=== PATIENT | female | born 1995 | race Caucasian/White ===

== ENCOUNTER 2016-08-05 21:07 | Emergency (ER) | payer BC ==
[~2016-08-05] VITALS: Ht 160 cm; Wt 54.0 kg
[2016-08-05 21:09] VITALS: BP 123/74; PULSE 104; RESP 16; TEMP 97.3; O2SAT 98
[2016-08-05] MEDS ORDERED: ACETAMINOPHEN 500 MG CPLT PO ONE (23:00)
[2016-08-05] MEDS ORDERED: DIAZEPAM 5 MG TAB PO ONE (23:00)
[2016-08-05 23:24] LABS: BACTERIA, URINE OCC /hpf; BLOOD, URINE NEG (NEG); COMMENT (UR) CULT NOT INDICATED; CULTURE IF INDICATED CULT NOT INDICATED; GLUCOSE,URINE NEG (NEG); KETONE, URINE NEG (NEG); MUCUS URINE FEW /lpf (OCC); NITRITE,URINE NEG (NEG); PH, URINE 7.5 (5.0-8.5); SQUAMOUS EPITHELIAL CELL URINE 7 /hpf (0-5); URINE COLOR YELLOW (YELLW/STRAW)
--- NOTE | 2016-08-05 23:27 | PD ---
HPI Chief Complaint: Flank/Kidney Pain Time Seen by Provider: 22:47 Travel History International Travel<30 days: No Contact w/Intl Traveler<30days: No Traveled to known affect area: No History of Present Illness HPI 21yo F with no significant PMH presents to the ED with c/o right lower back pain after pulling weeds today. States pain is localized in right lower back and worst with movement. Denies any fever, chest pain, sob, n/v, abdominal pain , urinary complaints, trauma, focal weakness or numbness. PFSH Past Medical History Medical History: Denies Significant Hx Diminished Hearing: No Tetanus Vaccination: < 5 Years Influenza Vaccination: Yes ?: Not LMP: 07/28/16 Past Surgical History Surgical History: No Previous Surgery Social History Alcohol Use: Yes (SOCIALLY) Tobacco Use: No Substance Use: No Allergies-Medications (Allergen,Severity, Reaction): Coded Allergies: No Known Allergies (Unverified , 08/05/16) Reported Meds & Prescriptions Reported Meds & Active Scripts Active No Active Prescriptions or Reported Medications Review of Systems Except as stated in HPI: all other systems reviewed are Neg Physical Exam Narrative GENERAL: 21yo F not in distress. SKIN: Warm and dry. HEAD: Atraumatic. Normocephalic. CARDIOVASCULAR: Regular rate and rhythm. No murmur appreciated. RESPIRATORY: No accessory muscle use. Clear to auscultation. Breath sounds equal bilaterally. GASTROINTESTINAL: Abdomen soft, non-tender, nondistended. No rebound tenderness or guarding. BACK: No midline ttp. +TTP paraspinal L5-S1 on right. Negative straight leg test. MUSCULOSKELETAL: No obvious deformities. No clubbing. No cyanosis. No edema. NEUROLOGICAL: Awake and alert. No obvious cranial nerve deficits. Motor grossly within normal limits. Sensation intact and equal bilaterally. Normal speech. PSYCHIATRIC: Appropriate mood and affect; insight and judgment normal. Data Data Last Documented VS Vital Signs Date Time Temp Pulse Resp B/P Pulse Ox O2 Delivery O2 Flow Rate FiO2 08/05/16 22:49 14 08/05/16 21:09 97.3 104 123/74 98 Room Air Orders Ed Urine Pregnancytest Poc (08/05/16 22:53) Diazepam (Valium) (08/05/16 23:00) Acetaminophen (Tylenol) (08/05/16 23:00) Urinalysis - C+S If Indicated (08/05/16 22:59) Labs Laboratory Tests Test 08/05/16 23:00 Urine Color YELLOW Urine Turbidity HAZY Urine pH 7.5 Urine Specific [place] 1.017 Urine Protein TRACE mg/dL Urine Glucose (UA) NEG mg/dL Urine Ketones NEG mg/dL Urine Occult Blood NEG Urine Nitrite NEG Urine Bilirubin NEG Urine Urobilinogen LESS THAN 2.0 MG/DL Urine Leukocyte Esterase TRACE Urine RBC 7 /hpf Urine WBC 5 /hpf Urine Squamous Epithelial 7 /hpf Cells Urine Amorphous Sediment RARE Urine Bacteria OCC /hpf Urine Mucus FEW /lpf Microscopic Urinalysis Comment CULT NOT INDICATED MDM Medical Decision Making Medical Screen Exam Complete: Yes Emergency Medical Condition: Yes Differential Diagnosis Musculoskeletal pain vs. sprain vs. nephrolithiasis vs. pyelonephritis Narrative Course 21yo F with right lower back pain after pulling weeds. Pain is very musculoskeletal. Urine negative. UA showed trace leukocyte. WBC is 5. Culture not indicated. Pt is well appearing and given acetaminophen and valium for pain. Pt states she wants to go home and follow up with PMD. Denies any IVDA. No red flags including fever, midline tenderness, focal weakness or numbness or urinary complaints. Return precautions given. Diagnosis Primary Impression: Back pain Qualified Code: M54.5 - Acute right-sided low back pain without sciatica Patient Instructions: General Instructions Departure Forms: Tests/Procedures Additional Instructions: Please follow up with your PMD in 1-2 days. Return to the ED if symptoms worsen. Med/Other Pt SpecificInfo: Prescription(s) given Scripts Ibuprofen 600 Mg Wgb232 Mg PO Q8HR PRN (PAIN) #20 TAB Ref 0 Prov:Tati Walter DO 08/06/16 Disposition: 01 DISCHARGE HOME Condition: Stable Jose AngelTati DO Aug 05, 2016 23:26
[2016-08-06] MEDS ORDERED: IBUP-232 PO (00:14)
[2016-08-06 00:18] VITALS: RESP 16
[2016-08-06 00:19] VITALS: BP 121/63; TEMP 98.4
== END 2016-08-06 00:20 | disposition home or self-care (01) ==
LOC: NEPA 21:07
DX: M54.5 Low back pain (principal)
CPT/HCPCS: 81001; 84703; 99283